=== PATIENT | female | born 1990 ===

== ENCOUNTER 2021-09-21 11:02 | Outpatient (CLI) | payer OTHER | END 2021-09-21 12:11 | disposition home or self-care (01) | LOC: PRENATAL 11:02 | PROVIDERS: ATTEND Obstetrics & Gynecology Maternal & Fetal Medicine | DX: O35.0XX0 Maternal care for (suspected) central nervous system malformation in fetus, not applicable or unspecified (principal); O35.3XX0 Maternal care for (suspected) damage to fetus from viral disease in mother, not applicable or unspecified; O34.40 Maternal care for other abnormalities of cervix, unspecified trimester; Z3A.23 23 weeks gestation of pregnancy ==